=== PATIENT | male | born 1955 | race Caucasian/White ===

== ENCOUNTER 2020-07-26 07:26 | Day surgery (SDC) | payer MEDICARE ==
[~2020-07-26 07:26] MED LIST: MEDICAL MARIJUANA PO; MOTRIN200 MG PO; MULTI VIT PO; NAPROSYN500 MG OR; NAPROSYN500 MG PO; TYLENOL500 MG PO
[2020-07-26] MEDS ORDERED: PERCOCET 5/325M1 TAB PO (09:51)
[2020-07-26 10:46] VITALS: BP 122/60
== END 2020-07-26 11:57 | disposition home or self-care (01) ==
LOC: ORM 07:26
PROVIDERS: ATTEND Surgery
PROC: 0YU54JZ Supplement Right Inguinal Region with Synthetic Substitute, Percutaneous Endoscopic Approach (ICD-10-PCS; principal; 2020-07-26)
DX: K40.90 Unilateral inguinal hernia, without obstruction or gangrene, not specified as recurrent (principal); Z20.822 Contact with and (suspected) exposure to COVID-19
CPT/HCPCS: C1781; J0131; J1100